=== PATIENT | female | born 1960 | race Caucasian/White ===

== ENCOUNTER 2019-07-09 17:22 | Emergency (ER) | payer MEDICARE, MEDICAID ==
[~2019-07-09] VITALS: Ht 170.2 cm; Wt 66.8 kg
[~2019-07-09 17:22] MED LIST: AMLO2.5T2 PO; DIAZ5TAB PO; LIDOcaine 1% W/epiNEPHrine 1:100,000 20ml vial ONE; MECL25TA3 PO; METH-603 PO; NAPR-56 PO; NITR100C6 PO; ONDA4TAB6 PO; OXYC40TA39 PO; PHEN-716 PO
[2019-07-09 17:27] VITALS: BP 154/89
--- NOTE | 2019-07-09 17:44 | NUR ---
pt visiting sister in [place] and thinks got bit by [id number].
[2019-07-09] MEDS ORDERED: DOXYCYCLINE 100MG CAPSULE PO STA (17:49)
[2019-07-09] MEDS ORDERED: TETanus/Pertussis (Acell)/Diphther VAC/PF (Tdap-Adult) 0.5ml syringe IM ONE (17:50)
[2019-07-09] MEDS ORDERED: DOXY100C43 PO (17:51)
== END 2019-07-09 18:48 | disposition home or self-care (01) ==
LOC: ER 17:23
DX: L03.012 Cellulitis of left finger (principal); I10 Essential (primary) hypertension; M19.90 Unspecified osteoarthritis, unspecified site; G89.29 Other chronic pain; Z98.890 Other specified postprocedural states; Z88.2 Allergy status to sulfonamides; Z79.2 Long term (current) use of antibiotics; Z79.899 Other long term (current) drug therapy
CPT/HCPCS: 10060; 90471; 99283